=== PATIENT | female | born 1985 | race Caucasian/White ===

== ENCOUNTER 2016-06-07 20:30 | Emergency (ER) | payer OTHER ==
[~2016-06-07] VITALS: Ht 154.9 cm; Wt 81.6 kg
[2016-06-07 20:34] VITALS: BP 132/79
--- NOTE | 2016-06-07 21:39 | NUR ---
PT TAKEN TO [facility] FROM [facility]
--- NOTE | 2016-06-07 21:42 | NUR ---
30Y/F PATIENT PRESENT TO ED WITH C/O LT. SHOULDER PAIN X 4 HRS. PATIENT STATES PAIN STARTED AT 1800 TODAY, THEN FEEL NUMPNESS. AAOX4, AMBULATORY WITH STEADY GAIT. C/O PAIN TO LT. SHOULDER, NO BRUISE NOR REDNESS, ABLE TO PERFORM ROM. CAP REFILL <3 SECS. VSS, NO S/SX OF DISTRESS. ER MD MADE AWARE OF PATIENT STATUS.
--- NOTE | 2016-06-07 22:01 | NUR ---
PT TAKEN TO BED 8
--- NOTE | 2016-06-07 22:05 | NUR ---
LEFT SHOULDER PAIN AND NUMBNESS 1800HOURS, DIZZINESS. PAIN SCALE 4/10 AT THIS TIME. ERMD AWARE.
--- NOTE | 2016-06-07 22:14 | NUR ---
Dr. Zapata evaluating patient at bedside.
[2016-06-07] MEDS ORDERED: KETOROLAC 30 MG/ML VIAL IM ONE (22:20)
[2016-06-07 22:54] VITALS: BP 128/75
--- NOTE | 2016-06-07 22:54 | NUR ---
Patient discharged with v/s stable. Written and verbal after care instructions given and explained. Patient alert, oriented and verbalized understanding of instructions. Ambulatory with steady gait. All questions addressed prior to discharge. ID band removed. Patient advised to follow up with PMD. Rx of NAPROSYN 500 MG given. Patient educated on indication of medication including possible reaction and side effects. Opportunity to ask questions provided and answered. APPLIED ARM SLING TO LT. ARM.
== END 2016-06-07 22:54 | disposition home or self-care (01) ==
LOC: MED 20:30
DX: S40.012A Contusion of left shoulder, initial encounter (principal); W20.8XXA Other cause of strike by thrown, projected or falling object, initial encounter; Y93.89 Activity, other specified; Y92.89 Other specified places as the place of occurrence of the external cause; Y99.8 Other external cause status
CPT/HCPCS: 73030; 96372; 99284; J1885

== ENCOUNTER 2018-12-11 22:50 | Emergency (ER) | payer OTHER ==
[~2018-12-11] VITALS: Ht 157.5 cm; Wt 72.6 kg
[2018-12-11 22:59] VITALS: BP 125/79
--- NOTE | 2018-12-12 00:13 | NUR ---
PT AT XRAY
--- NOTE | 2018-12-12 00:31 | NUR ---
PT WAS WHEEL CHAIRED TO BED #4
--- NOTE | 2018-12-12 00:39 | NUR ---
PT C/O RT ANKLE PAIN S/P "ROLLING" ANKLE AFTER STEPPING OFF CURB AT 1300 YESTERDAY. PT STATES SHE IS ABLE TO AMBULATE BUT PAIN IS 9/10 UPON AMBULATION. PAIN RADIATES TO JOSHI. MINOR SWELLING, NO VISIBLE BRUISING. +CMS. LMP 12/06/18. PT TOOK ALEVE FOR PAIN AT 1800, WITH NO PAIN RELIEF. PT IN NO DISTRESS AT THIS TIME. FAMILY MEMBER AT BEDSIDE. MEDHX: DM ALLERGIES: DENIES
--- NOTE | 2018-12-12 01:04 | NUR ---
DR. WRIGHT BEDSIDE EVALUATING PT
[2018-12-12] MEDS ORDERED: IBUPROFEN 600 MG TAB PO ONE (01:40)
--- NOTE | 2018-12-12 01:45 | NUR ---
PT RESTING IN BED WITH FAMILY MEMBER AT BEDSIDE. NO COMPLAINTS AT THIS TIME. VSS. WILL CONTINUE TO MONITOR.
--- NOTE | 2018-12-12 01:47 | NUR ---
PT AMBULATED TO RESTROOM.
--- NOTE | 2018-12-12 01:49 | NUR ---
RADIOLOGY AT BEDSIDE.
--- NOTE | 2018-12-12 02:40 | NUR ---
PT RESTING IN BED WITH EYES CLOSED. NO FURTHER COMPLAINTS. VSS AT THIS TIME. WILL CONTINUE TO MONITOR.
--- NOTE | 2018-12-12 03:39 | NUR ---
DONNA WRAP APPLIED TO PT R ANKLE AND FOOT COVERED WITH HOSPITAL SLIPPER. +CSM
--- NOTE | 2018-12-12 03:49 | NUR ---
Patient discharged with v/s stable. Written and verbal after care instructions given and explained. Patient alert, oriented and verbalized understanding of instructions. Ambulatory with to home. All questions addressed prior to discharge. ID band removed. Patient advised to follow up with PMD. Rx of IBRUPROFEN 600MG given. Patient educated on indication of medication including possible reaction and side effects. Opportunity to ask questions provided and answered.
[2018-12-12 03:50] VITALS: BP 125/79
== END 2018-12-12 03:49 | disposition home or self-care (01) ==
LOC: MED 22:50
DX: M25.571 Pain in right ankle and joints of right foot (principal); E11.9 Type 2 diabetes mellitus without complications; W19.XXXA Unspecified fall, initial encounter; Y93.89 Activity, other specified; Y92.89 Other specified places as the place of occurrence of the external cause; Y99.8 Other external cause status
CPT/HCPCS: 73590; 73610; 73630; 99283; Q0092